=== PATIENT | female | born 1955 | race Caucasian/White ===

== ENCOUNTER 2019-09-19 04:09 | Outpatient (RCR) | payer MEDICAID, SELFPAY ==
[2019-09-19 13:06] LABS: Abs Immature Grans 0.01 k/cumm (0.0-0.09); Absolute Basophil Count 0.02 k/cumm (0.0-0.2); Absolute Eosinophil Count 0.14 k/cumm (0.0-0.7); Absolute Monocyte Count 0.49 k/cumm (0.11-0.7); Absolute Neutrophil Count 4.51 k/cumm (1.2-6.7); Basophils % 0.3; Eosinophils % 2.2; HCT 33.6 % (36.0-46.0); HGB 9.9 g/dL (12.0-15.5); Immature Grans % 0.2 %; Lymphocytes % 20.1; Mean Corp. HGB Concentration 29.5 g/dL (32.0-36.0); Mean Corpuscular Hemoglobin 22.3 pg (27.0-33.0); Mean Corpuscular Volume 75.7 fL (80-95); Mean Platelet Volume 9.2 fL (8.0-11.0); Monocytes % 7.6; Neutrophils % 69.6; Platelet Count 547 x1000/uL (130-400); RBC 4.44 m/cumm (4.00-5.20); RBC Distribution Width 25.7 % (11.7-14.6); White Blood Cell Count 6.47 k/cumm (4.4-10.8)
[2019-09-19 13:21] LABS: ALT 25 U/L (14-59); AST 17 U/L (15-37); Albumin 3.3 g/dL (3.4-5.0); Alkaline Phosphatase 79 U/L (46-116); Anion Gap 6.4 mmol/L (3-11); BUN 14 mg/dL (7-18); Bilirubin, Total 0.2 mg/dL (0.2-1.0); CO2 29.6 mmol/L (21.0-32.0); CREATININE 0.79 mg/dL (0.55-1.02); Calcium 8.8 mg/dL (8.5-10.1); Chloride 101 mmol/L (98-107); Glucose 95 mg/dL (74-106); Potassium 3.6 mmol/L (3.5-5.1); Sodium 137 mmol/L (136-145); Total Protein 7.4 g/dL (6.4-8.2)
[2019-09-19 13:26] LABS: Anisocytosis 1+; Macrocytosis 1+; Microcytosis 1+
[2019-09-19 13:27] LABS: Polychromasia Present
[2019-09-22 11:08] LABS: CEA <0.5 ng/mL (See Note)
[2019-09-22] MEDS: Normal Saline Flush 10 ML SYR IVP (12:43)
== END 2019-09-25 23:59 | disposition home or self-care (01) ==
LOC: INF 04:09
PROVIDERS: PCP Family Medicine; Visit Provider Internal Medicine Hematology & Oncology
DX: C18.9 Malignant neoplasm of colon, unspecified (principal); Z45.2 Encounter for adjustment and management of vascular access device; C77.2 Secondary and unspecified malignant neoplasm of intra-abdominal lymph nodes
CPT/HCPCS: 36591; 80053; 82378; 85025

== ENCOUNTER 2019-10-24 02:53 | Outpatient (RCR) | payer MEDICAID, SELFPAY ==
[2019-10-10] MEDS: Normal Saline Flush 10 ML SYR IVP (08:04)
[2019-10-10 08:14] LABS: Abs Immature Grans 0.01 k/cumm (0.0-0.09); Absolute Basophil Count 0.01 k/cumm (0.0-0.2); Absolute Eosinophil Count 0.14 k/cumm (0.0-0.7); Absolute Monocyte Count 0.49 k/cumm (0.11-0.7); Absolute Neutrophil Count 2.82 k/cumm (1.2-6.7); Basophils % 0.2; Bilirubin Negative (Negative); Blood Trace-intact (Negative); Clarity Clear (Clear); Glucose Negative (Negative); HGB 10.9 g/dL (12.0-15.5); Immature Grans % 0.2 %; Ketones Negative (Negative); Leukocyte Esterase Trace (Negative); Lymphocytes % 25.7; Mean Corp. HGB Concentration 30.3 g/dL (32.0-36.0); Mean Corpuscular Hemoglobin 24.9 pg (27.0-33.0); Mean Corpuscular Volume 82.4 fL (80-95); Mean Platelet Volume 9.4 fL (8.0-11.0); Monocytes % 10.5; Neutrophils % 60.4; Nitrite Negative (Negative); Platelet Count 397 x1000/uL (130-400); RBC 4.37 m/cumm (4.00-5.20); Specific Gravity 1.015 (1.005-1.025); Urobilinogen 0.2 EU/dL (Up TO 0.2); White Blood Cell Count 4.67 k/cumm (4.4-10.8)
[2019-10-10 08:22] LABS: Bacteria Negative HPF (Negative); Crystals Negative HPF (Negative); Epithelial Cells Rare HPF (Negative)
[2019-10-10 08:23] LABS: C & S Indicated? Yes; Casts Negative LPF (Negative); Mucus Negative (Negative)
[2019-10-10 08:26] LABS: ALT 20 U/L (14-59); AST 17 U/L (15-37); Alkaline Phosphatase 85 U/L (46-116); Anion Gap 4.3 mmol/L (3-11); BUN 10 mg/dL (7-18); Bilirubin, Total 0.3 mg/dL (0.2-1.0); CO2 28.7 mmol/L (21.0-32.0); CREATININE 0.67 mg/dL (0.55-1.02); Calcium 8.6 mg/dL (8.5-10.1); Chloride 103 mmol/L (98-107); Glucose 87 mg/dL (74-106); Sodium 136 mmol/L (136-145)
[2019-10-13 10:52] LABS: CEA <0.5 ng/mL (See Note)
[2019-10-24] MEDS: Normal Saline Flush 10 ML SYR IVP (07:38)
[2019-10-24 07:44] LABS: Bilirubin Negative (Negative); Blood Moderate (Negative); Clarity Sl Cloudy (Clear); Glucose Negative (Negative); Ketones Negative (Negative); Leukocyte Esterase Moderate (Negative); Nitrite Negative (Negative); Specific Gravity 1.015 (1.005-1.025); Urobilinogen 0.2 EU/dL (Up TO 0.2); pH 5.5 (5-8)
[2019-10-24 07:45] LABS: Absolute Basophil Count 0.01 k/cumm (0.0-0.2); Absolute Eosinophil Count 0.08 k/cumm (0.0-0.7); Absolute Lymphocyte Count 0.89 k/cumm (1.2-3.4); Absolute Monocyte Count 0.71 k/cumm (0.11-0.7); Absolute Neutrophil Count 3.68 k/cumm (1.2-6.7); Basophils % 0.2; Eosinophils % 1.5; HCT 35.4 % (36.0-46.0); HGB 11.1 g/dL (12.0-15.5); Lymphocytes % 16.6; Mean Corp. HGB Concentration 31.4 g/dL (32.0-36.0); Mean Corpuscular Hemoglobin 26.2 pg (27.0-33.0); Mean Corpuscular Volume 83.7 fL (80-95); Mean Platelet Volume 9.1 fL (8.0-11.0); Monocytes % 13.2; Neutrophils % 68.5; Platelet Count 306 x1000/uL (130-400); RBC 4.23 m/cumm (4.00-5.20); White Blood Cell Count 5.37 k/cumm (4.4-10.8)
[2019-10-24 07:57] LABS: ALT 22 U/L (14-59); AST 16 U/L (15-37); Albumin 3.1 g/dL (3.4-5.0); Alkaline Phosphatase 87 U/L (46-116); Anion Gap 5.5 mmol/L (3-11); BUN 7 mg/dL (7-18); Bilirubin, Total 0.4 mg/dL (0.2-1.0); CO2 27.5 mmol/L (21.0-32.0); CREATININE 0.69 mg/dL (0.55-1.02); Calcium 8.5 mg/dL (8.5-10.1); Chloride 104 mmol/L (98-107); Glucose 129 mg/dL (74-106); Potassium 3.4 mmol/L (3.5-5.1); Sodium 137 mmol/L (136-145); Total Protein 7.2 g/dL (6.4-8.2)
[2019-10-24 07:58] LABS: Bacteria Many HPF (Negative); C & S Indicated? Yes; Casts Negative LPF (Negative); Crystals Negative HPF (Negative); Epithelial Cells Negative HPF (Negative); Mucus Heavy (Negative); Other Cells Rare Transitional (Negative); RBC >50 HPF (0-2); WBC >50 HPF (0-5)
[2019-10-27 10:37] LABS: CEA <0.5 ng/mL (See Note)
== END 2019-10-26 23:59 | disposition home or self-care (01) ==
LOC: INF 02:53
PROVIDERS: PCP Family Medicine; Visit Provider Internal Medicine Hematology & Oncology
DX: C18.9 Malignant neoplasm of colon, unspecified (principal); C77.2 Secondary and unspecified malignant neoplasm of intra-abdominal lymph nodes; Z45.2 Encounter for adjustment and management of vascular access device
CPT/HCPCS: 36591; 80053; 87077; 81003; 81015; 82378; 83735; 85025; 87086; 87186

== ENCOUNTER 2019-11-07 05:05 | Outpatient (RCR) | payer MEDICAID, SELFPAY ==
[2019-11-07] MEDS: Normal Saline Flush 10 ML SYR IVP (08:09)
[2019-11-07 08:30] LABS: Abs Immature Grans 0.01 k/cumm (0.0-0.09); Absolute Basophil Count 0.01 k/cumm (0.0-0.2); Absolute Eosinophil Count 0.06 k/cumm (0.0-0.7); Absolute Lymphocyte Count 0.95 k/cumm (1.2-3.4); Absolute Monocyte Count 0.56 k/cumm (0.11-0.7); Absolute Neutrophil Count 1.28 k/cumm (1.2-6.7); Basophils % 0.3; Eosinophils % 2.1; HCT 37.5 % (36.0-46.0); HGB 12.2 g/dL (12.0-15.5); Immature Grans % 0.3 %; Lymphocytes % 33.1; Mean Corp. HGB Concentration 32.5 g/dL (32.0-36.0); Mean Corpuscular Hemoglobin 27.2 pg (27.0-33.0); Mean Corpuscular Volume 83.7 fL (80-95); Monocytes % 19.5; Neutrophils % 44.7; Platelet Count 240 x1000/uL (130-400); RBC 4.48 m/cumm (4.00-5.20); RBC Distribution Width 18.9 % (11.7-14.6); White Blood Cell Count 2.87 k/cumm (4.4-10.8)
[2019-11-07 08:31] LABS: Bilirubin Negative (Negative); Blood Small (Negative); Clarity Clear (Clear); Glucose Negative (Negative); Ketones Negative (Negative); Leukocyte Esterase Trace (Negative); Nitrite Negative (Negative); Specific Gravity 1.015 (1.005-1.025); Urobilinogen 0.2 EU/dL (Up TO 0.2)
[2019-11-07 08:43] LABS: Bacteria Rare HPF (Negative); C & S Indicated? Yes; Casts Negative LPF (Negative); Crystals Negative HPF (Negative); Epithelial Cells Few HPF (Negative); Mucus Moderate (Negative); Other Cells Rare Renal (Negative); RBC 0-2 HPF (0-2); WBC 0-2 HPF (0-5)
[2019-11-07 09:07] LABS: ALT 24 U/L (14-59); AST 21 U/L (15-37); Albumin 3.3 g/dL (3.4-5.0); Alkaline Phosphatase 83 U/L (46-116); Anion Gap 6.8 mmol/L (3-11); BUN 7 mg/dL (7-18); Bilirubin, Total 0.3 mg/dL (0.2-1.0); CO2 28.2 mmol/L (21.0-32.0); CREATININE 0.62 mg/dL (0.55-1.02); Calcium 8.5 mg/dL (8.5-10.1); Chloride 103 mmol/L (98-107); Glucose 85 mg/dL (74-106); Potassium 3.6 mmol/L (3.5-5.1); Sodium 138 mmol/L (136-145)
[2019-11-10 10:37] LABS: CEA <0.5 ng/mL (See Note)
== END 2019-11-25 23:59 | disposition home or self-care (01) ==
LOC: INF 05:05
PROVIDERS: PCP Family Medicine; Visit Provider Internal Medicine Hematology & Oncology
DX: C18.9 Malignant neoplasm of colon, unspecified (principal); C77.2 Secondary and unspecified malignant neoplasm of intra-abdominal lymph nodes; Z45.2 Encounter for adjustment and management of vascular access device
CPT/HCPCS: 36591; 80053; 81003; 81015; 82378; 85025; 87086

== ENCOUNTER 2019-12-19 04:28 | Outpatient (RCR) | payer MEDICAID, SELFPAY | END 2019-12-26 23:59 | disposition home or self-care (01) | LOC: INF 04:28 | PROVIDERS: PCP Family Medicine; Visit Provider Internal Medicine Hematology & Oncology | DX: R69 Illness, unspecified (principal) ==

== ENCOUNTER 2020-01-16 04:41 | Outpatient (RCR) | payer MEDICAID, SELFPAY | END 2020-01-26 23:59 | disposition home or self-care (01) | LOC: INF 04:41 | PROVIDERS: PCP Family Medicine; Visit Provider Internal Medicine Hematology & Oncology | DX: Z45.2 Encounter for adjustment and management of vascular access device (principal); Z53.9 Procedure and treatment not carried out, unspecified reason ==

== ENCOUNTER 2020-07-02 08:15 | Outpatient (CLI) | payer MEDICARE, SELFPAY ==
[2020-07-02 08:43] LABS: Abs Immature Grans 0.02 10^3/uL (0.0-0.06); Absolute Basophil Count 0.02 10^3/uL (0.0-0.2); Absolute Eosinophil Count 0.06 10^3/uL (0.0-0.7); Absolute Lymphocyte Count 0.96 10^3/uL (1.2-3.4); Absolute Monocyte Count 0.49 10^3/uL (0.1-0.8); Absolute Neutrophil Count 3.23 10^3/uL (1.2-6.7); Basophils % 0.4; Eosinophils % 1.3; HCT 43.6 % (36.0-46.0); HGB 14.9 g/dL (11.2-15.7); Immature Grans % 0.4; Lymphocytes % 20.1; MCH 32.8 pg (27.0-33.0); MCHC 34.2 % (32.0-36.0); MPV 9.1 fL (8.0-11.0); Monocytes % 10.3; Neutrophils % 67.5; Nucleated RBC 0 %; Platelet Count 268 10^3/uL (130-400); RBC 4.54 10^6/uL (3.93-5.22); RDW 15.4 % (11.7-14.6); RDW-SD 53.9 fL; WBC 4.78 10^3/uL (4.4-10.8)
[2020-07-02 08:57] LABS: ALT 22 U/L (14-59); AST 21 U/L (15-37); Albumin 3.6 g/dL (3.4-5.0); Alkaline Phosphatase 75 U/L (46-116); Anion Gap 9.4 mmol/L (3-11); BUN 6 mg/dL (7-18); Bilirubin, Total 0.5 mg/dL (0.2-1.0); CO2 25.6 mmol/L (21.0-32.0); CREATININE 0.6 mg/dL (0.55-1.02); Calcium 9.1 mg/dL (8.5-10.1); Chloride 106 mmol/L (98-107); Glucose 88 mg/dL (74-106); Sodium 141 mmol/L (136-145); Total Protein 7.6 g/dL (6.4-8.2)
== END 2020-07-02 08:16 | disposition home or self-care (01) ==
LOC: LBO 08:17
PROVIDERS: PCP Family Medicine; Visit Provider Internal Medicine Hematology & Oncology
DX: C18.9 Malignant neoplasm of colon, unspecified (principal); C77.2 Secondary and unspecified malignant neoplasm of intra-abdominal lymph nodes
CPT/HCPCS: 36415; 80053; 82378; 85025

== ENCOUNTER 2020-11-19 05:28 | Outpatient (RCR) | payer MEDICARE, SELFPAY ==
[2020-11-19] MEDS: Normal Saline Flush 10 ML SYR IVP (09:00)
[2020-11-19 09:14] LABS: Abs Immature Grans 0.02 10^3/uL (0.0-0.06); Absolute Basophil Count 0.02 10^3/uL (0.0-0.2); Absolute Eosinophil Count 0.07 10^3/uL (0.0-0.7); Absolute Lymphocyte Count 1.36 10^3/uL (1.2-3.4); Absolute Monocyte Count 0.36 10^3/uL (0.1-0.8); Absolute Neutrophil Count 3.94 10^3/uL (1.2-6.7); Basophils % 0.3; Eosinophils % 1.2; HCT 43.3 % (36.0-46.0); HGB 14.5 g/dL (11.2-15.7); Immature Grans % 0.3; Lymphocytes % 23.6; MCH 31.3 pg (27.0-33.0); MCHC 33.5 % (32.0-36.0); MCV 93.3 fL (80-95); MPV 9.1 fL (8.0-11.0); Monocytes % 6.2; Neutrophils % 68.4; Nucleated RBC 0 %; Platelet Count 306 10^3/uL (130-400); RBC 4.64 10^6/uL (3.93-5.22); RDW 12.2 % (11.7-14.6); WBC 5.77 10^3/uL (4.4-10.8)
[2020-11-19 09:15] LABS: Bilirubin Negative (Negative); Blood Negative (Negative); Clarity Clear (Clear); Glucose Negative (Negative); Ketones Negative (Negative); Leukocyte Esterase Negative (Negative); Nitrite Negative (Negative); Urobilinogen 0.2 EU/dL (Up TO 0.2)
[2020-11-19 09:26] LABS: ALT 28 U/L (14-59); AST 22 U/L (15-37); Albumin 3.8 g/dL (3.4-5.0); Alkaline Phosphatase 75 U/L (46-116); Anion Gap 9.4 mmol/L (3-11); BUN 8 mg/dL (7-18); Bilirubin, Total 0.3 mg/dL (0.2-1.0); CO2 26.6 mmol/L (21.0-32.0); CREATININE 0.7 mg/dL (0.55-1.02); Chloride 107 mmol/L (98-107); Glucose 100 mg/dL (74-106); Potassium 3.7 mmol/L (3.5-5.1); Sodium 143 mmol/L (136-145); Total Protein 7.9 g/dL (6.4-8.2)
[2020-11-19 17:50] LABS: CEA <2.0 ng/mL (See Note)
== END 2020-11-24 23:59 | disposition home or self-care (01) ==
LOC: INF 05:28
PROVIDERS: PCP Family Medicine; Visit Provider Internal Medicine Hematology & Oncology
DX: C18.9 Malignant neoplasm of colon, unspecified (principal); Z45.2 Encounter for adjustment and management of vascular access device; C77.2 Secondary and unspecified malignant neoplasm of intra-abdominal lymph nodes
CPT/HCPCS: 36415; 80053; 96523; 81003; 82378; 85025

== ENCOUNTER 2020-11-19 13:53 | Outpatient (CLI) | payer MEDICARE, MEDICAID, SELFPAY ==
[2020-11-19] MEDS: Omnipaque 350 MG/ML 50 ML BTL IJ (14:12)
--- NOTE | 2020-11-19 14:14 | DI.RAD_ITS ---
Exam(s) RF CATHETER PATENCY CHECK W EXAM: RF CATHETER PATENCY CHECK W CLINICAL HISTORY: COLON CA, DYE STUDY TO CONFIRM PORT PLACEMENT, WITH NO BLOOD RETURN. TECHNIQUE: 2D and realtime digital imaging was performed. CONTRAST MATERIAL: 15 cc Omnipaque 350 COMPARISON: No exams were available for comparison FINDINGS: The port was injected. There is resistance to injection. No contrast is seen to flow into the SVC or brachiocephalic vein. There is opacification of small branch vessels anteriorly, superior and inf erior to the level of the catheter. The patient did not experience pain during the exam.. The findings were called to Dr. De La Cruz after completion of the study. Fluoro time: 24 seconds RADIATION DOSE DELIVERED: Ka,r=22.8 mGy
== END 2020-11-19 14:13 ==
PROVIDERS: PCP Family Medicine; Visit Provider Internal Medicine Hematology & Oncology
DX: C77.2 Secondary and unspecified malignant neoplasm of intra-abdominal lymph nodes (principal); C18.9 Malignant neoplasm of colon, unspecified
CPT/HCPCS: 36415; 76000; 80053; 96523; 81003; 82378; 85025; Q9967

== ENCOUNTER 2020-12-17 07:26 | Outpatient (RCR) | payer MEDICARE, MEDICAID, SELFPAY ==
[2020-12-17] MEDS: Normal Saline Flush 10 ML SYR IVP (07:57)
[2020-12-17 07:58] LABS: Abs Immature Grans 0.01 10^3/uL (0.0-0.06); Absolute Basophil Count 0.03 10^3/uL (0.0-0.2); Absolute Eosinophil Count 0.12 10^3/uL (0.0-0.7); Absolute Lymphocyte Count 1.07 10^3/uL (1.2-3.4); Absolute Monocyte Count 0.37 10^3/uL (0.1-0.8); Absolute Neutrophil Count 3.57 10^3/uL (1.2-6.7); Basophils % 0.6; Bilirubin Negative (Negative); Blood Trace-intact (Negative); Clarity Clear (Clear); Eosinophils % 2.3; Glucose Negative (Negative); HCT 40.6 % (36.0-46.0); HGB 13.4 g/dL (11.2-15.7); Immature Grans % 0.2; Ketones Negative (Negative); Leukocyte Esterase Negative (Negative); Lymphocytes % 20.7; MCH 30.5 pg (27.0-33.0); MCV 92.5 fL (80-95); MPV 9.2 fL (8.0-11.0); Monocytes % 7.2; Nitrite Negative (Negative); Nucleated RBC 0 %; Platelet Count 322 10^3/uL (130-400); RBC 4.39 10^6/uL (3.93-5.22); RDW 12.1 % (11.7-14.6); RDW-SD 41.5 fL; Specific Gravity 1.015 (1.005-1.025); Urobilinogen 0.2 EU/dL (Up TO 0.2); WBC 5.17 10^3/uL (4.4-10.8)
[2020-12-17 08:05] LABS: Bacteria Negative HPF (Negative); C & S Indicated? No; Casts Negative LPF (Negative); Crystals Negative HPF (Negative); Epithelial Cells Rare HPF (Negative); Mucus Negative (Negative); RBC 0-2 HPF (0-2); WBC Negative HPF (0-5)
[2020-12-17 08:09] LABS: ALT 24 U/L (14-59); AST 16 U/L (15-37); Albumin 3.5 g/dL (3.4-5.0); Alkaline Phosphatase 76 U/L (46-116); Anion Gap 6.9 mmol/L (3-11); BUN 11 mg/dL (7-18); Bilirubin, Total 0.4 mg/dL (0.2-1.0); CO2 30.1 mmol/L (21.0-32.0); CREATININE 0.6 mg/dL (0.55-1.02); Chloride 105 mmol/L (98-107); Glucose 97 mg/dL (74-106); Potassium 3.9 mmol/L (3.5-5.1); Sodium 142 mmol/L (136-145); Total Protein 7.4 g/dL (6.4-8.2)
[2020-12-20 09:25] LABS: CEA <2.0 ng/mL (See Note)
== END 2020-12-25 23:59 | disposition home or self-care (01) ==
LOC: INF 07:26
PROVIDERS: Internal Medicine Hematology & Oncology; PCP Family Medicine; Visit Provider Internal Medicine Hematology & Oncology
DX: C77.2 Secondary and unspecified malignant neoplasm of intra-abdominal lymph nodes (principal); C18.9 Malignant neoplasm of colon, unspecified; Z45.2 Encounter for adjustment and management of vascular access device
CPT/HCPCS: 36591; 80053; 81003; 81015; 82378; 85025

== ENCOUNTER 2021-03-04 04:19 | Outpatient (RCR) | payer MEDICARE, MEDICAID, SELFPAY ==
[2021-03-04] MEDS: Heparin 500 UNITS/5 ML SYRINGE IV (09:54)
[2021-03-04] MEDS: Normal Saline Flush 10 ML SYR IVP (09:54)
[2021-03-04 10:06] LABS: Absolute Basophil Count 0.02 10^3/uL (0.0-0.2); Absolute Lymphocyte Count 1.05 10^3/uL (1.2-3.4); Absolute Monocyte Count 0.38 10^3/uL (0.1-0.8); Absolute Neutrophil Count 4.01 10^3/uL (1.2-6.7); Basophils % 0.4; Eosinophils % 1.8; HCT 38.5 % (36.0-46.0); HGB 12.2 g/dL (11.2-15.7); Lymphocytes % 18.9; MCH 27.7 pg (27.0-33.0); MCHC 31.7 % (32.0-36.0); MCV 87.3 fL (80-95); MPV 9.5 fL (8.0-11.0); Monocytes % 6.8; Neutrophils % 72.1; Nucleated RBC 0 %; Platelet Count 339 10^3/uL (130-400); RBC 4.41 10^6/uL (3.93-5.22); RDW 13.9 % (11.7-14.6); RDW-SD 43.9 fL; WBC 5.56 10^3/uL (4.4-10.8)
[2021-03-04 10:18] LABS: ALT 30 U/L (14-59); AST 21 U/L (15-37); Albumin 3.7 g/dL (3.4-5.0); Alkaline Phosphatase 125 U/L (46-116); BUN 12 mg/dL (7-18); Bilirubin, Total 0.3 mg/dL (0.2-1.0); CREATININE 0.6 mg/dL (0.55-1.02); Calcium 9.2 mg/dL (8.5-10.1); Chloride 105 mmol/L (98-107); Glucose 108 mg/dL (74-106); Potassium 3.8 mmol/L (3.5-5.1); Sodium 139 mmol/L (136-145); Total Protein 7.9 g/dL (6.4-8.2)
[2021-03-04 17:37] LABS: CEA <2.0 ng/mL (See Note)
== END 2021-03-27 23:59 | disposition home or self-care (01) ==
LOC: INF 04:19
PROVIDERS: Internal Medicine Hematology & Oncology; PCP Family Medicine; Visit Provider Internal Medicine Hematology & Oncology
DX: C18.2 Malignant neoplasm of ascending colon (principal); Z45.2 Encounter for adjustment and management of vascular access device
CPT/HCPCS: 36591; 80053; 82378; 85025

== ENCOUNTER 2021-04-29 14:07 | Outpatient (REF) | payer MEDICARE, MEDICAID, SELFPAY ==
[2021-04-29 14:28] LABS: Abs Immature Grans 0.01 10^3/uL (0.0-0.06); Absolute Basophil Count 0.03 10^3/uL (0.0-0.2); Absolute Eosinophil Count 0.06 10^3/uL (0.0-0.7); Absolute Lymphocyte Count 1.27 10^3/uL (1.2-3.4); Absolute Monocyte Count 0.36 10^3/uL (0.1-0.8); Absolute Neutrophil Count 4.78 10^3/uL (1.2-6.7); Basophils % 0.5; Eosinophils % 0.9; HCT 41.5 % (36.0-46.0); HGB 13.4 g/dL (11.2-15.7); Immature Grans % 0.2; Lymphocytes % 19.5; MCHC 32.3 % (32.0-36.0); MCV 86.8 fL (80-95); MPV 9.7 fL (8.0-11.0); Monocytes % 5.5; Neutrophils % 73.4; Nucleated RBC 0 %; Platelet Count 291 10^3/uL (130-400); RBC 4.78 10^6/uL (3.93-5.22); RDW 14.6 % (11.7-14.6); RDW-SD 46.6 fL; WBC 6.51 10^3/uL (4.4-10.8)
[2021-04-29 14:38] LABS: ALT 26 U/L (14-59); AST 17 U/L (15-37); Albumin 3.7 g/dL (3.4-5.0); Alkaline Phosphatase 86 U/L (46-116); Anion Gap 8.8 mmol/L (3-11); BUN 13 mg/dL (7-18); Bilirubin, Total 0.3 mg/dL (0.2-1.0); CO2 29.2 mmol/L (21.0-32.0); CREATININE 0.5 mg/dL (0.55-1.02); Chloride 102 mmol/L (98-107); Glucose 94 mg/dL (74-106); Potassium 3.5 mmol/L (3.5-5.1); Sodium 140 mmol/L (136-145); Total Protein 7.6 g/dL (6.4-8.2)
[2021-04-29 22:43] LABS: CEA <0.5 ng/mL (See Note)
== END 2021-04-29 14:08 | disposition home or self-care (01) ==
LOC: LBN 14:07
PROVIDERS: PCP Family Medicine; Visit Provider Internal Medicine Hematology & Oncology
DX: C18.2 Malignant neoplasm of ascending colon (principal)
CPT/HCPCS: 80053; 82378; 85025